=== PATIENT | male | born 1965 | race Hispanic/Latino ===

== ENCOUNTER 2017-05-30 05:57 | Day surgery (SDC) | payer OTHER ==
[2017-05-28 11:02] LABS: BASOPHILS % (AUTO) 0.7 % (0.0-5.0); EOSINOPHILS % (AUTO) 4.3 % (0.0-8.0); HEMATOCRIT 38.3 % (42-54); LYMPHOCYTES % (AUTO) 24.4 % (21.0-51.0); MEAN CORPUSCULAR HEMOGLOBIN 30.5 pg (27.0-33.0); MEAN CORPUSCULAR HGB CONC 33.5 g/dL (32.0-36.0); MEAN CORPUSCULAR VOLUME 91.2 fL (79-99); MONOCYTES % (AUTO) 7.8 % (3.0-13.0); NEUTROPHILS % (AUTO) 62.8 % (40.0-77.0); PLATELET COUNT (AUTO) 270 K/uL (130-400); RED CELL DISTRIBUTION WIDTH 13.3 % (11.0-15.5); WHITE BLOOD COUNT (AUTO) 7.2 K/uL (4.8-10.8)
[2017-05-28 11:08] LABS: APPEARANCE,URINE Clear (CLEAR); BILIRUBIN,URINE Negative (NEGATIVE); COLOR,URINE Yellow (YELLOW); GLUCOSE, URINE (UA) Negative (NEGATIVE); KETONES,URINE Negative (NEGATIVE); LEUKOCYTE ESTERASE ,URINE Negative (NEGATIVE); NITRATE,URINE Negative (NEGATIVE); OCCULT BLOOD,URINE Negative (NEGATIVE); PROTEIN,URINE Negative (NEGATIVE)
[2017-05-28 11:14] LABS: CREATININE 0.9 mg/dL (0.5-1.5)
[2017-05-28 11:15] VITALS: BP 153/90
[2017-05-28 11:38] LABS: PARTIAL THROMBOPLASTIN TIME 27.6 SEC (26.3-35.5); PROTHROMBIN TIME 10.5 SEC (9.6-11.6)
[2017-05-30] VITALS (9 sets, daily range): BP systolic 103–148; BP diastolic 76–91
[~2017-05-30] VITALS: Ht 166.4 cm; Wt 111.7 kg
[~2017-05-30 05:57] MED LIST: ACET500C54 PO; ASCO-360 PO; BUSP10TA3 PO; CYAN100099 PO; DOCU100C33 PO; FLUO-126 PO; GABA-531 PO; LISI40TA4 PO; POLY17PO3 PO; PRAZ2CAP2 PO; ZOLP10TA6 PO
[2017-05-30] MEDS ORDERED: SODIUM CHLORIDE 0.9% 500ML 500 ML IV SCH (06:00)
[2017-05-30] MEDS: SODIUM CHLORIDE 0.9% 1000ML 0 ML IV ONE ×2 (06:59→07:01)
[2017-05-30] MEDS ORDERED: HEPARIN SODIUM 1000UNIT/ML 10ML VIAL ONE (07:09)
[2017-05-30] MEDS ORDERED: ISOVUE-370 50ML VIAL IV ONE (07:09)
[2017-05-30] MEDS ORDERED: IOPAMIDOL-370 100 ML VIAL IV ONE (07:09)
[2017-05-30] MEDS ORDERED: LIDOCAINE HCL 2% 20ML ONE ×2 (07:09→07:35)
[2017-05-30] MEDS ORDERED: MIDAZOLAM HCL 1 MG/ML 2ML VIAL ONE (07:38)
[2017-05-30] MEDS ORDERED: CARV3.12 PO (08:10)
[2017-05-30] MEDS ORDERED: FURO20TA4 PO (08:10)
== END 2017-05-30 11:35 | disposition home or self-care (01) ==
LOC: DAH 05:57
PROVIDERS: ATTEND Internal Medicine Cardiovascular Disease
DX: I42.0 Dilated cardiomyopathy (principal); I45.10 Unspecified right bundle-branch block; Z79.899 Other long term (current) drug therapy; I10 Essential (primary) hypertension; I21.3 ST elevation (STEMI) myocardial infarction of unspecified site; G47.33 Obstructive sleep apnea (adult) (pediatric); Z68.41 Body mass index [BMI] 40.0-44.9, adult; F43.10 Post-traumatic stress disorder, unspecified; Z87.891 Personal history of nicotine dependence
CPT/HCPCS: 36415; 71045; 80048; 81003; 85025; 85610; 85730; 93005; 93458; A4606; C1760; C1894; J1644; J2250; J3490 ×2; J7040; Q9967 ×2; 99152; 99153; J7030

== ENCOUNTER → 2017-09-20 | Outpatient (CLI) | payer OTHER ==
[~2017-09-20] MED LIST changes: +CARV3.12 PO; +FURO20TA4 PO
== END | disposition home or self-care (01) ==
LOC: SHCH 14:54
PROVIDERS: ATTEND Internal Medicine Cardiovascular Disease
DX: I42.9 Cardiomyopathy, unspecified (principal)
CPT/HCPCS: 93306

== ENCOUNTER 2018-02-01 10:26 | Day surgery (SDC) | payer OTHER ==
[2018-01-31 13:15] LABS: BASOPHILS % (AUTO) 0.9 % (0.0-5.0); EOSINOPHILS % (AUTO) 5.6 % (0.0-8.0); HEMATOCRIT 34.6 % (42-54); LYMPHOCYTES % (AUTO) 29.6 % (21.0-51.0); MEAN CORPUSCULAR HGB CONC 34.4 g/dL (32.0-36.0); MEAN CORPUSCULAR VOLUME 92.8 fL (79-99); MONOCYTES % (AUTO) 8.4 % (3.0-13.0); NEUTROPHILS % (AUTO) 55.5 % (40.0-77.0); NUCLEATED RED BLOOD CELLS 0.1 % (0.0-0.19); PLATELET COUNT (AUTO) 246 K/uL (130-400); RED BLOOD CELL COUNT(AUTO) 3.73 MIL/uL (4.50-6.20); RED CELL DISTRIBUTION WIDTH 13.4 % (11.0-15.5); WHITE BLOOD COUNT (AUTO) 6.9 K/uL (4.8-10.8)
[2018-01-31 13:16] LABS: CREATININE 0.8 mg/dL (0.5-1.5); POTASSIUM 4.3 mmol/L (3.5-5.1)
[2018-01-31 13:29] VITALS: BP 133/70
[~2018-02-01] VITALS: Ht 165.1 cm; Wt 120.8 kg
[2018-02-01] VITALS (16 sets, daily range): BP systolic 102–145; BP diastolic 43–92
[~2018-02-01 10:26] MED LIST changes: +ALLO300T2 PO; -CARV3.12 PO; +CARV6.25 PO; +CEFAZOLIN 3GM /D5W 100ML 100 ML IV PRN; +CEFAZOLIN SODIUM 1 GM VIAL ONE; -FURO20TA4 PO; +LACTATED RINGERS 1000ML 1,000 ML IV ONE
[2018-02-01] MEDS ORDERED: EPINEPHRINE 1 MG/ML 30ML VIAL IJ ONE (10:52)
[2018-02-01] MEDS ORDERED: DEXAMETHASONE SOD PHOSPHATE 10MG/ML 1ML VIAL ONE (11:50)
[2018-02-01] MEDS ORDERED: MIDAZOLAM HCL 1 MG/ML 2ML VIAL ONE (11:50)
[2018-02-01] MEDS ORDERED: LIDOCAINE PF 2% 5ML ABBOJECT ONE (11:50)
[2018-02-01] MEDS ORDERED: ONDANSETRON HCL 4 MG/2 ML VIAL ONE (11:50)
[2018-02-01] MEDS ORDERED: PROPOFOL 10 MG/ML 20ML VIAL IV ONE (11:50)
[2018-02-01] MEDS ORDERED: FENTANYL CITRATE PF 50 MCG/1 ML 5ML AMP IV ONE (11:51)
[2018-02-01] MEDS ORDERED: PHENYLEPHRINE HCL 10 MG/ML 1ML VIAL IV ONE ×2 (12:10→13:33)
[2018-02-01] MEDS ORDERED: SODIUM CHLORIDE 0.9% 10 ML VIAL ONE (12:10)
[2018-02-01] MEDS ORDERED: EPHEDRINE SULFATE 50 MG/ML AMPULE ONE (12:11)
[2018-02-01] MEDS ORDERED: ROCURONIUM 10MG/1ML SYR 10 MG/ML ML ONE (12:58)
[2018-02-01] MEDS ORDERED: HYDR-4457 PO (14:48)
[2018-02-01] MEDS ORDERED: CEPH500B PO (14:51)
[2018-02-01] MEDS ORDERED: MEPERIDINE-PF 25 MG/ML SYG ONE ×2 (15:10→15:26)
[2018-02-01] MEDS ORDERED: KETOROLAC TROMETHAMINE 30MG/ML ONE (15:27)
[2018-02-01] MEDS ORDERED: MORPHINE SULFATE 4 MG/1ML SYG ONE (15:48)
== END 2018-02-01 17:22 | disposition home or self-care (01) ==
LOC: DAH 10:26
PROVIDERS: ATTEND Orthopaedic Surgery
DX: M75.102 Unspecified rotator cuff tear or rupture of left shoulder, not specified as traumatic (principal); M75.42 Impingement syndrome of left shoulder; M19.012 Primary osteoarthritis, left shoulder; Z68.41 Body mass index [BMI] 40.0-44.9, adult; Z79.899 Other long term (current) drug therapy; Z98.890 Other specified postprocedural states; I42.0 Dilated cardiomyopathy; G47.30 Sleep apnea, unspecified; I10 Essential (primary) hypertension; E66.01 Morbid (severe) obesity due to excess calories
CPT/HCPCS: 29824; 29826; 29827; 36415; 80048; 82948; 85025; A4565; A4649 ×5; A4930 ×2; A6204; C1713 ×2; G0168; J0171; J0690; J1100; J1885; J2001; J2175 ×2; J2250; J2270; J2370 ×2; J2405; J2704; J3010; J3490; J7030; J7120

== ENCOUNTER 2021-12-19 06:10 | Day surgery (SDC) | payer OTHER ==
[2021-12-19] VITALS (14 sets, daily range): BP systolic 116–138; BP diastolic 67–88
[~2021-12-19] VITALS: Ht 165.1 cm; Wt 106.2 kg
[~2021-12-19 06:10] MED LIST changes: -CEFAZOLIN 3GM /D5W 100ML 100 ML IV PRN; -CEFAZOLIN SODIUM 1 GM VIAL ONE; -FLUO-126 PO; +FLUO20CA36 PO; +HYDR-4457 PO; -LACTATED RINGERS 1000ML 1,000 ML IV ONE; -LISI40TA4 PO; +LISI40TA9 PO; -POLY17PO3 PO; +POLY17PO52 PO
[2021-12-19 06:58] LABS: BASOPHILS % (AUTO) 0.5 % (0.0-5.0); EOSINOPHILS % (AUTO) 3.1 % (0.0-8.0); HEMATOCRIT 38.9 % (42-54); LYMPHOCYTES % (AUTO) 25.8 % (21.0-51.0); MEAN CORPUSCULAR HEMOGLOBIN 30.9 pg (27.0-33.0); MEAN CORPUSCULAR HGB CONC 32.9 g/dL (32.0-36.0); MONOCYTES % (AUTO) 7.2 % (3.0-13.0); NEUTROPHILS % (AUTO) 63.1 % (40.0-77.0); PLATELET COUNT (AUTO) 216 K/uL (130-400); RED BLOOD CELL COUNT(AUTO) 4.14 MIL/uL (4.50-6.20); RED CELL DISTRIBUTION WIDTH 12.9 % (11.0-15.5); WHITE BLOOD COUNT (AUTO) 9.9 K/uL (4.8-10.8)
[2021-12-19 07:04] LABS: CREATININE 0.9 mg/dL (0.5-1.5)
[2021-12-19] MEDS ORDERED: LACTATED RINGERS 1000ML 1,000 ML IV ONE (07:11)
[2021-12-19] MEDS ORDERED: SUCCINYLCHOLINE CHLORIDE 20 MG/ML 10 ML VIAL ONE (07:16)
[2021-12-19] MEDS ORDERED: LIDOCAINE PF 100MG/5ML (2%) SYRINGE 5ML ONE (07:16)
[2021-12-19] MEDS ORDERED: DEXAMETHASONE SOD PHOSPHATE 10MG/ML 1ML VIAL ONE (07:16)
[2021-12-19] MEDS ORDERED: MIDAZOLAM HCL 1 MG/ML 2ML VIAL ONE (07:17)
[2021-12-19] MEDS ORDERED: ONDANSETRON 4MG INJ ONE (07:17)
[2021-12-19] MEDS ORDERED: NEOSTIGMINE 5MG/5ML SYR IV ONE (07:17)
[2021-12-19] MEDS ORDERED: PROPOFOL 10 MG/ML 20ML VIAL IV ONE (07:17)
[2021-12-19] MEDS ORDERED: GLYCOPYRROLATE 1 MG/5 ML SYRINGE ONE (07:17)
[2021-12-19] MEDS ORDERED: FENTANYL CITRATE PF 50 MCG/1 ML 2ML VIAL ONE (07:18)
[2021-12-19] MEDS ORDERED: ROCURONIUM 10MG/1ML SYR 10 MG/ML ML ONE (07:18)
[2021-12-19] MEDS: CEFAZOLIN SODIUM 1 GM VIAL ONE ×2 (08:07→09:07)
[2021-12-19] MEDS ORDERED: GABA300C PO (08:10)
[2021-12-19] MEDS ORDERED: ATOR20TA65 PO (08:10)
[2021-12-19] MEDS ORDERED: LISI20TA24 PO (08:10)
[2021-12-19] MEDS ORDERED: CARV12.511 PO (08:10)
[2021-12-19] MEDS ORDERED: CEPH500B PO (10:07)
[2021-12-19] MEDS ORDERED: MEPERIDINE-PF 25 MG/ML SYG ONE ×2 (10:07→10:16)
[2021-12-19] MEDS ORDERED: ACET-2079 PO (10:07)
[2021-12-19] MEDS ORDERED: IBUP-2070 PO (10:09)
== END 2021-12-19 11:45 | disposition home or self-care (01) ==
LOC: DAH 06:10 → SUH 06:10
PROVIDERS: ATTEND Orthopaedic Surgery
DX: M23.322 Other meniscus derangements, posterior horn of medial meniscus, left knee (principal); M17.12 Unilateral primary osteoarthritis, left knee; M94.262 Chondromalacia, left knee; I10 Essential (primary) hypertension; G47.33 Obstructive sleep apnea (adult) (pediatric); M10.9 Gout, unspecified; D64.9 Anemia, unspecified; Z79.899 Other long term (current) drug therapy; Z79.01 Long term (current) use of anticoagulants
CPT/HCPCS: 29881; 87426; 80048; 85025; 36415; A4663; A4649 ×2; J7120; J3010; J0690; J3490; J1100; J2710; J0330; J2001; J2250; J2704; J2405; J2175 ×2; A6223; A4930; A5120; A4215; A4223; A4222; A4221; A6450

== ENCOUNTER → 2023-09-27 | Outpatient (CLI) | payer OTHER ==
[~2023-09-27] VITALS: Ht 165.1 cm; Wt 95.6 kg
[~2023-09-27] MED LIST changes: +ACET-2079 PO; -ACET500C54 PO; -ASCO-360 PO; +ATOR20TA65 PO; -BUSP10TA3 PO; +CARV12.511 PO; +CEFAZOLIN SODIUM 2 GM VIAL ONE; +CEPH500B PO; +CYAN-106 PO; -CYAN100099 PO; -DOCU100C33 PO; -FLUO20CA36 PO; -GABA-531 PO; +GABA300C PO; -HYDR-4457 PO; +IBUP-2070 PO; +LISI2.5T13 PO; +LISI20TA24 PO; -LISI40TA9 PO; +METH-812 PO; -POLY17PO52 PO; -PRAZ2CAP2 PO; +PYRI100L2 PO; +SILD100T PO; -ZOLP10TA6 PO
[2023-09-27 12:47] LABS: BASOPHILS # (AUTO) 0.06 K/uL (0.00-0.20); BASOPHILS % (AUTO) 0.7 % (0.0-5.0); EOSINOPHILS # (AUTO) 0.14 K/uL (0.00-0.70); EOSINOPHILS % (AUTO) 1.6 % (0.0-8.0); HEMATOCRIT 40.5 % (42-54); IMMATURE GRANULOCYTE ABSOLUTE 0.03 K/uL (0-1); LYMPHOCYTES # (AUTO) 2.4 K/uL (1.0-4.8); LYMPHOCYTES % (AUTO) 27.7 % (21.0-51.0); MEAN CORPUSCULAR HGB CONC 33.1 g/dL (32.0-36.0); MEAN CORPUSCULAR VOLUME 93.8 fL (79-99); MONOCYTES # (AUTO) 0.6 K/uL (0.1-1.0); MONOCYTES % (AUTO) 6.4 % (3.0-13.0); NEUTROPHILS # (AUTO) 5.5 K/uL (1.8-7.7); NEUTROPHILS % (AUTO) 63.3 % (40.0-77.0); PLATELET COUNT (AUTO) 224 K/uL (130-400); RED BLOOD CELL COUNT(AUTO) 4.32 MIL/uL (4.50-6.20); RED CELL DISTRIBUTION WIDTH 13.7 % (11.0-15.5); WHITE BLOOD COUNT (AUTO) 8.7 K/uL (4.8-10.8)
[2023-09-27 13:03] LABS: INR <= 0.93 (0.85-1.15); PROTHROMBIN TIME 10.9 SEC (9.6-11.6)
[2023-09-27 13:04] LABS: PARTIAL THROMBOPLASTIN TIME 26.6 SEC (26.3-35.5)
[2023-09-27 13:09] LABS: CREATININE 0.8 mg/dL (0.5-1.3); POTASSIUM 4.2 mmol/L (3.5-5.1)
[2023-09-27 13:25] VITALS: BP 156/94; PULSE 61; RESP 18
[2023-09-28 09:00] VITALS: BP 119/74; PULSE 57; RESP 16
[2023-09-28] MEDS: LACTATED RINGERS 1000ML 1,000 ML IV ONE (12:49)
== END | disposition home or self-care (01) ==
LOC: EDSTATUS 12:00 → DAH 12:29
PROVIDERS: ATTEND Student in an Organized Health Care Education/Training Program
DX: M75.122 Complete rotator cuff tear or rupture of left shoulder, not specified as traumatic (principal); M25.512 Pain in left shoulder; M75.22 Bicipital tendinitis, left shoulder; Z98.890 Other specified postprocedural states
CPT/HCPCS: 36415; 80048; 85025; 85610; 85730; J7120; J0690